=== PATIENT | female | born 1945 | race Caucasian/White ===

== ENCOUNTER 2020-04-24 10:31 | Outpatient (RCR) | payer MEDICARE, BC, SELFPAY ==
[2020-04-24] MEDS: COVID-19 VACC, MRNA(PFIZER)/PF 30 MCG/0.3 ML SYRINGE IM (18:26)
[2020-05-15] MEDS: COVID-19 VACC, MRNA(PFIZER)/PF 30 MCG/0.3 ML SYRINGE IM (18:14)
== END 2020-07-22 23:59 ==
LOC: IMMUN 10:31
PROVIDERS: PCP Family Medicine; Visit Provider Family Medicine
DX: Z23 Encounter for immunization (principal)
CPT/HCPCS: 0001A; 0002A; 91300

== ENCOUNTER → 2021-01-05 15:34 | Outpatient (CLI) | payer MEDICARE, BC, SELFPAY ==
--- NOTE | 2021-01-05 15:55 | MRI_ITS ---
STUDY: MRI ORBITS WITH AND WITHOUT CONTRAST REASON FOR EXAM: Female, 75 years old. L OPTIC NERVE ATROPHY TECHNIQUE: Standardized fat and water weighted pulse sequences were obtained in all 3 orthogonal planes, pre-and post contrast administration. IV DOTAREM 17 mL was administered for the contrast portion of the examination. COMPARISON: None. FINDINGS: Normal bilateral globes. There is decreased size of the left optic nerve in comparison with the right.Otherwise bilateral optic nerve sheath complexes and optic nerves. Normal bilateral intraconal and extraconal spaces. Normal bilateral extraocular muscles. Normal optic chiasm and post-chiasmatic tracts. There is enlargement of the sella turcica with increased CSF within the sella and flattening of the pituitary gland consistent with an empty sellar syndrome. Normal infundibular stalk, hypothalamus, and optic chiasm. Normal bilateral cavernous sinuses. Normal tectal plate and pineal gland. Normal size of the ventricles and extra-axial spaces for the patient''s age. There are multiple white matter hyperintensities, distributed throughout the deep white matter tracts of the cerebral hemispheres, consistent with moderate chronic white matter ischemic changes. MRI/Brain W/WO Contrast IMPRESSION: Left optic nerve atrophy. No demonstrated lesions. Electronically Signed: Hernandez Sebastian MD at 14:36 EST Tel , Service support ,
[2021-01-05 16:01] LABS: CREATININE FINGERSTICK 0.9 mg/dL (0.55-1.02); EGFR FINGERSTICK > 60.0000 mL/min (>60)
== END ==
PROVIDERS: PCP Family Medicine; Referring Provider Ophthalmology; Visit Provider Ophthalmology
DX: H47.212 Primary optic atrophy, left eye (principal)
CPT/HCPCS: 70553; A9575

== ENCOUNTER → 2022-12-09 | Outpatient (CLI) | payer MEDICARE, BC, SELFPAY ==
--- NOTE | 2022-12-09 16:44 | RAD_ITS ---
STUDY: X-RAY - RIGHT KNEE REASON FOR EXAM: Female, 77 years old. Bilateral knee pain. TECHNIQUE: 4 view(s) of the knee. COMPARISON: None. FINDINGS: Osteopenia. Small superior patellar spur. Moderate arthrosis of the medial femorotibial compartment with osteophytes. Mild arthrosis of the lateral femorotibial compartment without osteophyte formation. Slight lateral tilt of the patella with mild arthrosis of the patellofemoral compartment. Small ovoid 6 mm in diameter calcification projected posterior to the femorotibial joint the lateral view which may represent a small intra-articular osteochondral body. Normal patellofemoral articulation. Normal soft tissues. RAD/Knee 4 or More Views IMPRESSION: Osteopenia with superior patellar spur and tricompartmental arthrosis. Probable small intra-articular osteochondral body. No acute abnormality or erosive changes. Electronically Signed: Sal Giraldo MD at 9:56 EDT ,
--- NOTE | 2022-12-09 16:50 | RAD_ITS ---
STUDY: X-RAY - LEFT KNEE REASON FOR EXAM: Female, 77 years old. Bilateral knee pain. TECHNIQUE: 4 view(s) of the knee. COMPARISON: None. FINDINGS: Osteopenia. Small superior patellar spur. Moderate medial compartmental arthrosis with osteophyte formation. Mild arthrosis of the lateral femorotibial compartment. Slight lateral tilt of the patella with mild arthrosis of the patellofemoral compartment. Normal soft tissues. RAD/Knee 4 or More Views IMPRESSION: Osteopenia with tricompartmental arthrosis as described. No acute abnormality or erosive changes. Electronically Signed: Sal Giraldo MD at 9:55 EDT ,
--- NOTE | 2022-12-09 16:58 | RAD_ITS ---
STUDY: X-RAY - PELVIS AND BILATERAL HIPS REASON FOR EXAM: Female, 77 years old. Bilateral hip pain. TECHNIQUE: AP view of the pelvis.? 2 views of the right hip, and 2 views of the left hip were obtained. COMPARISON: None. FINDINGS: There is a non-specific bowel gas pattern. Normal visualized soft tissue structures. Phleboliths. Osteopenia. Mild arthrosis of both sacroiliac joints. Mild arthrosis of the symphysis pubis. Incidentally noted is lower lumbosacral spondylosis. Mild arthrosis of both hips. RAD/Hips B/L min 2 views w/ Pelvis IMPRESSION: Osteopenia with osteoarthritic changes as described. No acute abnormality or erosive changes. Electronically Signed: Sal Giraldo MD at 9:57 EDT ,
== END | disposition home or self-care (01) ==
LOC: RAD 16:42
PROVIDERS: PCP Family Medicine; Referring Provider Anesthesiology Pain Medicine; Visit Provider Anesthesiology Pain Medicine
DX: M17.0 Bilateral primary osteoarthritis of knee (principal)
CPT/HCPCS: 73521; 73564